=== PATIENT | male | born 1965 | race Two or more races ===

== ENCOUNTER 2018-09-29 14:17 | Emergency (ER) | payer SELFPAY ==
[~2018-09-29] VITALS: Ht 175.3 cm; Wt 79.5 kg
[2018-09-29 14:19] VITALS: Ht 175.3 cm; Wt 79.5 kg
[2018-09-29 15:00] LABS: BASOPHILS 1.6 % (0-2); EOSINOPHILS 6.7 % (0-7); HEMATOCRIT 36.7 % (42.0-54.0); HEMOGLOBIN 12.3 g/dL (13.5-17.5); IMMATURE GRANULOCYTES 0.2 % (0-5); LYMPHOCYTES 39.2 % (15-50); MCH 30.2 pg (26.0-34.0); MCHC 33.5 g/dL (31.0-37.0); MCV 90.2 fL (80.0-100.0); MEAN PLATELET VOLUME 9.4 fL (7.4-10.4); MONOCYTES 7.1 % (2-11); NEUTROPHILS 45.2 % (40-80); PLATELET COUNT 201 10x3/uL (130-400); RBC 4.07 10x6/uL (4.20-6.10); WBC 5.1 10x3/uL (4.8-10.8)
[2018-09-29 15:15] LABS: ALBUMIN 3.4 g/dL (3.4-5.0); ALKALINE PHOSPHATASE 172 U/L (46-116); ALT (SGPT) 49 U/L (10-68); BILIRUBIN - TOTAL 0.32 mg/dL (0.2-1.3); CALC OSMOLALITY 276 mosm/kg (275-300); CALCIUM 8.7 mg/dL (8.5-10.1); CARBON DIOXIDE 23.3 mmol/L (21.0-32.0); CHLORIDE - SERUM 102 mmol/L (98-107); CREATININE - SERUM 0.6 mg/dL (0.6-1.3); GLUCOSE 101 mg/dL (74-106); POTASSIUM - SERUM 3.7 mmol/L (3.5-5.1); PROTEIN - SERUM 7.4 g/dL (6.4-8.2); SODIUM 138 mmol/L (136-145); UREA NITROGEN 14 mg/dL (7-18); eGFR NON AFRICAN AMERICAN > 90 mL/min (90-120)
[2018-09-29 17:45] VITALS: BP 123/68
== END 2018-09-29 20:27 | disposition left against medical advice (07) ==
LOC: D.ER 14:17
PROVIDERS: Family Medicine
DX: F10.129 Alcohol abuse with intoxication, unspecified (principal); F10.10 Alcohol abuse, uncomplicated

== ENCOUNTER 2019-06-19 16:27 | Emergency (ER) | payer SELFPAY ==
[~2019-06-19] VITALS: Ht 175.3 cm; Wt 74.8 kg
[2019-06-19 16:42] VITALS: Ht 175.3 cm; Wt 74.8 kg
[2019-06-19 17:37] LABS: BASOPHILS 1.1 % (0-2); HEMATOCRIT 35.7 % (42.0-54.0); HEMOGLOBIN 12.2 g/dL (13.5-17.5); IMMATURE GRANULOCYTES 0.2 % (0-5); LYMPHOCYTES 31.5 % (15-50); MCH 31.5 pg (26.0-34.0); MCHC 34.2 g/dL (31.0-37.0); MCV 92.2 fL (80.0-100.0); MEAN PLATELET VOLUME 10.2 fL (7.4-10.4); MONOCYTES 9.4 % (2-11); NEUTROPHILS 54.8 % (40-80); RBC 3.87 10x6/uL (4.20-6.10); RDW 16.3 % (11.5-14.5); WBC 4.7 10x3/uL (4.8-10.8)
[2019-06-19 17:38] LABS: PLATELET COUNT 102 10x3/uL (130-400)
[2019-06-19 17:50] LABS: UDS - AMPHET NEGATIVE QUAL (NEGATIVE); UDS - BARB NEGATIVE QUAL (NEGATIVE); UDS - BENZO NEGATIVE QUAL (NEGATIVE); UDS - COCAINE NEGATIVE QUAL (NEGATIVE); UDS - OPIATE NEGATIVE QUAL (NEGATIVE); UDS - PCP NEGATIVE QUAL (NEGATIVE); UDS - THC NEGATIVE QUAL (NEGATIVE)
[2019-06-19 17:58] LABS: CALC OSMOLALITY 272 mosm/kg (275-300); CALCIUM 8.6 mg/dL (8.5-10.1); CARBON DIOXIDE 20.7 mmol/L (21.0-32.0); CHLORIDE - SERUM 104 mmol/L (98-107); CREATININE - SERUM 0.5 mg/dL (0.6-1.3); GLUCOSE 85 mg/dL (74-106); POTASSIUM - SERUM 3.9 mmol/L (3.5-5.1); SODIUM 138 mmol/L (136-145); UREA NITROGEN 7 mg/dL (7-18); eGFR NON AFRICAN AMERICAN > 90 mL/min (90-120)
[2019-06-19 18:14] VITALS: BP 119/64
== END 2019-06-19 17:35 | disposition home or self-care (01) ==
LOC: D.ER 16:27
PROVIDERS: Emergency Medicine
DX: F10.10 Alcohol abuse, uncomplicated (principal); Y90.8 Blood alcohol level of 240 mg/100 ml or more; K21.9 Gastro-esophageal reflux disease without esophagitis